=== PATIENT | female | born 1945 | race Caucasian/White ===

== ENCOUNTER 2020-02-20 10:17 | Emergency (ER) | payer MEDICARE ==
[~2020-02-20 10:17] MED LIST: AERONEB GO NEB1 EACH MC; ALPRAZOLAM0.5 MG PO; ASPIR 8181 MG PO; ASPIRIN EC81 MG PO; AZITHROMYCIN250 MG PO; BACTRIM DS TAB1 EACH PO; CATAPRES0.2 MG PO; CEFDINIR300 MG PO; CLOPIDOGREL75 MG PO; CRESTOR10 MG PO; ECOTRIN81 MG PO; FLONASE 0.05% N16 GM; IPRAT-ALBUT 0.5-3 ML INH; K-TAB ER20 MEQ PO; KEFLEX CAP 500500 MG PO; KEFLEX500 MG PO; KENALOG 0.5% CR15 GM TOP; LASIX40 MG PO; LEVOXYL75 MCG PO; LIPITOR20 MG PO; LISINOPRIL10 MG PO; LOPRESSOR 25 MG25 MG PO; MEDROL4 MG PO; MULTIPLE VITAM1 EAC2 PO; NORVASC 5 MG TAB5 MG PO; NORVASC10 MG PO; NORVASC5 MG PO; PEPCID20 MG PO; PHENERGAN 12.12.5 M1 PO; PLAVIX 75 MG TA75 MG PO; PROAIR HFA8.5 GM INH; SPIRIVA18 MCG INH; SYNTHROID75 MCG PO
[2020-02-20 11:21] LABS: HEMOGLOBIN 12.8 gm/dl (12.3-15.3); RED BLOOD COUNT 4.62 M/UL (4.00-5.10); WHITE BLOOD COUNT 9.6 K/UL (4.5-11.0)
[2020-02-20] MEDS ORDERED: VIBRAMYCIN100 MG PO (14:26)
[2020-02-20] MEDS ORDERED: AUGMENTIN 875-1 EACH PO (14:26)
[2020-02-20] MEDS ORDERED: DOXYCYCLINE HY100 M2 PO (23:59)
[2020-02-21] MEDS ORDERED: BACTRIM 400-801 EACH PO (00:20)
== END 2020-02-20 15:08 | disposition home or self-care (01) ==
LOC: ER1 10:17
PROVIDERS: Emergency Medicine
DX: J18.9 Pneumonia, unspecified organism (principal); R10.9 Unspecified abdominal pain; J44.9 Chronic obstructive pulmonary disease, unspecified; Z20.822 Contact with and (suspected) exposure to COVID-19; Z99.81 Dependence on supplemental oxygen
CPT/HCPCS: 71045; 80053; 81001; 83605; 83735; 84100; 85025; 87040; 87086; 96365; 99284; J0696; J7030; U0002

== ENCOUNTER 2020-02-20 21:43 | Emergency (ER) | payer MEDICARE ==
[~2020-02-20 21:43] MED LIST changes: +AUGMENTIN 875-1 EACH PO; +VIBRAMYCIN100 MG PO
[2020-02-20 22:42] LABS: HEMOGLOBIN 12.4 gm/dl (12.3-15.3); RED BLOOD COUNT 4.5 M/UL (4.00-5.10); WHITE BLOOD COUNT 7.3 K/UL (4.5-11.0)
[2020-02-20 23:04] LABS: BUN/CREATININE RATIO 22 (0-10)
[2020-02-20] MEDS ORDERED: DOXYCYCLINE HY100 M2 PO (23:59)
[2020-02-21] MEDS ORDERED: BACTRIM 400-801 EACH PO (00:20)
== END 2020-02-21 02:49 | disposition home or self-care (01) ==
LOC: ER1 21:43
PROVIDERS: Family Medicine
DX: R06.02 Shortness of breath (principal); R79.89 Other specified abnormal findings of blood chemistry; J44.9 Chronic obstructive pulmonary disease, unspecified; Z99.81 Dependence on supplemental oxygen; Z88.5 Allergy status to narcotic agent; J18.9 Pneumonia, unspecified organism; R10.9 Unspecified abdominal pain; Z20.822 Contact with and (suspected) exposure to COVID-19
CPT/HCPCS: 71045; 80053; 81001; 82550; 82553; 83605; 83735; 84100; 84484; 85025; 85379; 85610; 87040; 87086; 93005; 96365; 99284; 99285; J0696; J7030; Q9967; U0002

== ENCOUNTER 2020-02-23 19:59 | Emergency (ER) | payer MEDICARE ==
[~2020-02-23 19:59] MED LIST changes: +BACTRIM 400-801 EACH PO; +DOXYCYCLINE HY100 M2 PO
[2020-02-23 20:59] LABS: HEMOGLOBIN 13.2 gm/dl (12.3-15.3); RED BLOOD COUNT 4.75 M/UL (4.00-5.10); WHITE BLOOD COUNT 6.1 K/UL (4.5-11.0)
[2020-02-23 21:08] LABS: BUN/CREATININE RATIO 24 (0-10)
== END 2020-02-24 02:00 | disposition home or self-care (01) ==
LOC: ER1 19:59
PROVIDERS: Emergency Medicine
DX: I10 Essential (primary) hypertension (principal); F41.9 Anxiety disorder, unspecified; J44.9 Chronic obstructive pulmonary disease, unspecified; Z99.81 Dependence on supplemental oxygen; Z88.5 Allergy status to narcotic agent
CPT/HCPCS: 71045; 80053; 81001; 82550; 82553; 83605; 83690; 83735; 83874; 83880; 84439; 84443; 84484; 85025; 93005; 96374; 96375; 99285; J0360; J1940

== ENCOUNTER → 2020-03-15 | Outpatient (CLI) | payer MEDICARE | LOC: HEART 5 11:48 | DX: J44.9 Chronic obstructive pulmonary disease, unspecified (principal); R06.02 Shortness of breath; R94.2 Abnormal results of pulmonary function studies | CPT/HCPCS: 94010; 94729 ==

== ENCOUNTER → 2020-04-04 | Outpatient (CLI) | payer MEDICARE | LOC: ECHO 04-01 10:00 | DX: I50.30 Unspecified diastolic (congestive) heart failure (principal); I27.20 Pulmonary hypertension, unspecified; I08.3 Combined rheumatic disorders of mitral, aortic and tricuspid valves; Z95.1 Presence of aortocoronary bypass graft | CPT/HCPCS: ECHO; 93306 ==

== ENCOUNTER → 2020-04-15 | Outpatient (CLI) | payer MEDICARE | LOC: RAD 16:53 | DX: R06.02 Shortness of breath (principal); I50.9 Heart failure, unspecified | CPT/HCPCS: 71046 ==

== ENCOUNTER → 2020-08-01 | Outpatient (CLI) | payer MEDICARE | LOC: EXRD 11:07 | DX: J44.9 Chronic obstructive pulmonary disease, unspecified (principal); I50.30 Unspecified diastolic (congestive) heart failure; R91.8 Other nonspecific abnormal finding of lung field; Z98.890 Other specified postprocedural states | CPT/HCPCS: 71046 ==

== ENCOUNTER 2020-11-14 07:20 | Inpatient (IN) | payer MEDICARE ==
[~2020-11-14] VITALS: Ht 167.6 cm; Wt 72.6 kg
[~2020-11-14 07:20] MED LIST changes: -LEVOXYL75 MCG PO; +LEVOXYL88 MCG PO
[2020-11-14 07:43] LABS: HEMOGLOBIN 10.4 gm/dl (12.3-15.3); RED BLOOD COUNT 3.78 M/UL (4.00-5.10); WHITE BLOOD COUNT 3.4 K/UL (4.5-11.0)
[2020-11-14] MEDS ORDERED: ATORVASTATIN CA40 MG PO (14:29)
[2020-11-14] MEDS ORDERED: LISINOPRIL20 MG PO (14:30)
[2020-11-14] MEDS ORDERED: METOPROLOL SUCC25 MG PO (14:31)
[2020-11-14] MEDS ORDERED: BREZTRI AEROS10.7 GM INH (14:32)
[2020-11-14] MEDS ORDERED: BUSPIRONE HCL5 MG PO (14:33)
[2020-11-14] MEDS ORDERED: CLONIDINE HCL0.1 MG PO (14:34)
[2020-11-15 03:00] LABS: ACINETOBACTER BAUMANNII Not Detected (Negative); CANDIDA ALBICANS Not Detected (Negative); CANDIDA KRUSEI Not Detected (Negative); CANDIDA TROPICALIS Not Detected (Negative); ENTEROCOCCUS Not Detected (Negative); ESCHERICHIA COLI Not Detected (Negative); HAEMOPHILUS INFLUENZAE Not Detected (Negative); KLEBSIELLA OXYTOCA Not Detected (Negative); KLEBSIELLA PNEUMONIAE Not Detected (Negative); KPC-CARBAPENEM-RESISTANCE GENE Not Detected (Negative); PROTEUS Not Detected (Negative); PSEUDOMONAS AERUGINOSA Not Detected (Negative); SERRATIA MARCESANS Not Detected (Negative); STAPHYLOCOCCUS AUREUS Not Detected (Negative); STREP AGALACTIAE (GROUP B) Not Detected (Negative); STREP PYOGENES (GROUP A) Not Detected (Negative); STREPTOCOCCUS Not Detected (Negative); vanA/B (VANCOMYCIN RESIST GENE Not Detected (Negative)
[2020-11-15 04:14] LABS: STAPHYLOCOCCUS DETECTED (Negative); mecA (METHICILLIN RESIST GENE DETECTED (Negative)
[2020-11-15 06:58] LABS: HEMOGLOBIN 11.4 gm/dl (12.3-15.3); WHITE BLOOD COUNT 3.5 K/UL (4.5-11.0)
[2020-11-15 07:03] LABS: RED BLOOD COUNT 4.19 M/UL (4.00-5.10)
[2020-11-16 06:28] LABS: HEMOGLOBIN 12.5 gm/dl (12.3-15.3); RED BLOOD COUNT 4.58 M/UL (4.00-5.10)
[2020-11-16 06:29] LABS: WHITE BLOOD COUNT 9.3 K/UL (4.5-11.0)
[2020-11-17 07:09] LABS: HEMOGLOBIN 12.5 gm/dl (12.3-15.3); RED BLOOD COUNT 4.56 M/UL (4.00-5.10); WHITE BLOOD COUNT 7.4 K/UL (4.5-11.0)
[2020-11-18 07:31] LABS: HEMOGLOBIN 11.9 gm/dl (12.3-15.3); RED BLOOD COUNT 4.35 M/UL (4.00-5.10)
[2020-11-18 07:35] LABS: WHITE BLOOD COUNT 5.1 K/UL (4.5-11.0)
[2020-11-18] MEDS ORDERED: LASIX40 MG PO (12:08)
[2020-11-18] MEDS ORDERED: DECADRON6 MG PO (12:08)
[2020-11-18] MEDS ORDERED: COMBIVENT RESPIM4 GM INH (12:08)
== END 2020-11-18 19:01 | disposition home or self-care (01) | DRG 177 ==
LOC: ER1 07:20 → MED SURG 4 09:11 → CDU 09:11 → MED SURG 4 12:25
PROVIDERS: Emergency Medicine; Internal Medicine; Internal Medicine Infectious Disease; ADMIT Internal Medicine
PROC: XW033E5 Introduction of Remdesivir Anti-infective into Peripheral Vein, Percutaneous Approach, New Technology Group 5 (ICD-10-PCS; principal; 2020-11-14)
PROC: 3E0333Z Introduction of Anti-inflammatory into Peripheral Vein, Percutaneous Approach (ICD-10-PCS; 2020-11-14)
PROC: 8E0ZXY6 Isolation (ICD-10-PCS; 2020-11-14)
DX: U07.1 COVID-19 (principal); J12.82 Pneumonia due to coronavirus disease 2019; I50.33 Acute on chronic diastolic (congestive) heart failure; J96.21 Acute and chronic respiratory failure with hypoxia; J15.9 Unspecified bacterial pneumonia; J44.0 Chronic obstructive pulmonary disease with (acute) lower respiratory infection; G93.40 Encephalopathy, unspecified; N17.9 Acute kidney failure, unspecified; I27.20 Pulmonary hypertension, unspecified; I08.3 Combined rheumatic disorders of mitral, aortic and tricuspid valves; R79.89 Other specified abnormal findings of blood chemistry; K21.9 Gastro-esophageal reflux disease without esophagitis; E78.5 Hyperlipidemia, unspecified; I25.10 Atherosclerotic heart disease of native coronary artery without angina pectoris; I73.9 Peripheral vascular disease, unspecified; E03.9 Hypothyroidism, unspecified; I11.0 Hypertensive heart disease with heart failure; Z95.1 Presence of aortocoronary bypass graft; Z99.81 Dependence on supplemental oxygen; Z86.73 Personal history of transient ischemic attack (TIA), and cerebral infarction without residual deficits; Z93.1 Gastrostomy status; Z90.49 Acquired absence of other specified parts of digestive tract; Z88.6 Allergy status to analgesic agent; Z88.5 Allergy status to narcotic agent; Z82.49 Family history of ischemic heart disease and other diseases of the circulatory system; Z87.891 Personal history of nicotine dependence
CPT/HCPCS: 36415; 36600; 71045; 80053; 82550; 82553; 82728; 82803; 82962; 83605; 83615; 83735; 83874; 83880; 84100; 84439; 84443; 84484; 85025; 85379; 85610; 85730; 86140; 87040; 87077; 87150; 87186; 93005; 94640; 94664; 94760; 96374; 99285; J0456; J0696; J1100; J1650; J1940; J2185; J3370; J7030; J7040; J7070; U0002

== ENCOUNTER 2020-11-25 05:58 | Inpatient (IN) | payer MEDICARE ==
[~2020-11-25] VITALS: Ht 167.6 cm; Wt 70.8 kg
[~2020-11-25 05:58] MED LIST changes: +ATORVASTATIN CA40 MG PO; +BREZTRI AEROS10.7 GM INH; +BUSPIRONE HCL5 MG PO; +CLONIDINE HCL0.1 MG PO; +COMBIVENT RESPIM4 GM INH; +DECADRON6 MG PO; +LISINOPRIL20 MG PO; +METOPROLOL SUCC25 MG PO
[2020-11-25 07:28] LABS: RED BLOOD COUNT 5.26 M/UL (4.00-5.10); WHITE BLOOD COUNT 7.5 K/UL (4.5-11.0)
[2020-11-25 07:30] LABS: HEMOGLOBIN 14.1 gm/dl (12.3-15.3)
[2020-11-26 04:34] LABS: RED BLOOD COUNT 4.76 M/UL (4.00-5.10)
[2020-11-26 04:35] LABS: WHITE BLOOD COUNT 4.6 K/UL (4.5-11.0)
--- NOTE | 2020-11-26 17:10 | NUR ---
SPOKE WITH FAMILY TODAY TO UPDATE THEM ON HER PLAN OF CARE.
[2020-11-27] MEDS ORDERED: LASIX40 MG PO (09:02)
[2020-11-27] MEDS ORDERED: NORVASC5 MG PO (09:02)
[2020-11-27] MEDS ORDERED: CEFUROXIME500 MG PO (09:02)
== END 2020-11-27 12:45 | disposition home or self-care (01) | DRG 177 ==
LOC: ER1 05:58 → CDU 12:13 → MED SURG 4 15:55
PROVIDERS: Physician Assistant; ADMIT Internal Medicine
PROC: 8E0ZXY6 Isolation (ICD-10-PCS; principal; 2020-11-25)
PROC: 3E0333Z Introduction of Anti-inflammatory into Peripheral Vein, Percutaneous Approach (ICD-10-PCS; principal; 2020-11-25)
PROC: XW033E5 Introduction of Remdesivir Anti-infective into Peripheral Vein, Percutaneous Approach, New Technology Group 5 (ICD-10-PCS; principal; 2020-11-25)
PROC: 5A09457 Assistance with Respiratory Ventilation, 24-96 Consecutive Hours, Continuous Positive Airway Pressure (ICD-10-PCS; 2020-11-25)
DX: U07.1 COVID-19 (principal); J12.82 Pneumonia due to coronavirus disease 2019; J96.21 Acute and chronic respiratory failure with hypoxia; J96.02 Acute respiratory failure with hypercapnia; J15.9 Unspecified bacterial pneumonia; I13.0 Hypertensive heart and chronic kidney disease with heart failure and stage 1 through stage 4 chronic kidney disease, or unspecified chronic kidney disease; N17.9 Acute kidney failure, unspecified; I50.32 Chronic diastolic (congestive) heart failure; N18.30 Chronic kidney disease, stage 3 unspecified; I25.10 Atherosclerotic heart disease of native coronary artery without angina pectoris; E03.9 Hypothyroidism, unspecified; E78.5 Hyperlipidemia, unspecified; I73.9 Peripheral vascular disease, unspecified; I27.20 Pulmonary hypertension, unspecified; Z86.73 Personal history of transient ischemic attack (TIA), and cerebral infarction without residual deficits; Z95.1 Presence of aortocoronary bypass graft; Z79.82 Long term (current) use of aspirin; Z79.890 Hormone replacement therapy; Z99.81 Dependence on supplemental oxygen; Z88.5 Allergy status to narcotic agent
CPT/HCPCS: 36415; 70450; 71045; 80048; 80053; 80202; 81001; 82550; 82553; 82803; 83605; 83615; 83874; 83880; 84484; 85025; 86140; 87040; 93005; 94640; 94660; 94664; 94760; 96374; 96375; 99285; J0692; J1100; J1644; J2543; J3370; J7040; J7070; U0002

== ENCOUNTER 2020-12-19 21:58 | Inpatient (IN) | payer MEDICARE ==
[~2020-12-19] VITALS: Ht 172.7 cm; Wt 72.7 kg
[~2020-12-19 21:58] MED LIST changes: +CEFUROXIME500 MG PO
[2020-12-19 22:41] LABS: HEMOGLOBIN 12.1 gm/dl (12.3-15.3); RED BLOOD COUNT 4.46 M/UL (4.00-5.10); WHITE BLOOD COUNT 8.3 K/UL (4.5-11.0)
[2020-12-19 23:15] LABS: BUN/CREATININE RATIO 17 (0-10)
[2020-12-20 23:48] LABS: ACINETOBACTER BAUMANNII Not Detected (Negative); CANDIDA ALBICANS Not Detected (Negative); CANDIDA KRUSEI Not Detected (Negative); CANDIDA TROPICALIS Not Detected (Negative); ENTEROCOCCUS Not Detected (Negative); ESCHERICHIA COLI Not Detected (Negative); HAEMOPHILUS INFLUENZAE Not Detected (Negative); KLEBSIELLA OXYTOCA Not Detected (Negative); KLEBSIELLA PNEUMONIAE Not Detected (Negative); KPC-CARBAPENEM-RESISTANCE GENE Not Detected (Negative); PROTEUS Not Detected (Negative); PSEUDOMONAS AERUGINOSA Not Detected (Negative); SERRATIA MARCESANS Not Detected (Negative); STAPHYLOCOCCUS AUREUS Not Detected (Negative); STREP AGALACTIAE (GROUP B) Not Detected (Negative); STREP PYOGENES (GROUP A) Not Detected (Negative); STREPTOCOCCUS Not Detected (Negative); vanA/B (VANCOMYCIN RESIST GENE Not Detected (Negative)
[2020-12-21 02:10] LABS: STAPHYLOCOCCUS DETECTED (Negative); mecA (METHICILLIN RESIST GENE DETECTED (Negative)
--- NOTE | 2020-12-21 02:25 | NUR ---
NOTIFID DR RODRIGUEZ OF POSITIVE BLOOD CULTURES. RECIEVED ORDERS. WILL CONTINUE TO MONITOR.
--- NOTE | 2020-12-21 06:22 | NUR ---
PT O2 SATS 86%. NOTIFIED MD AND RECIEVED ORDERS. WILL CONTINUE TO MONITOR.
[2020-12-21 07:08] LABS: HEMOGLOBIN 11.9 gm/dl (12.3-15.3); RED BLOOD COUNT 4.33 M/UL (4.00-5.10)
[2020-12-21 07:13] LABS: WHITE BLOOD COUNT 12.4 K/UL (4.5-11.0)
--- NOTE | 2020-12-21 10:41 | NUR ---
VITALS STABLE MD MADE AWARE OF PTS DECONDITIONING FROM SENIOR IT RECRUITER PT IS FEBRILE, DIAPHORETIC, RR AT 30/M O2 WAS AT 2 L PT FOUND WITH O2 SAT OF 60% NONREBREATHER PLACED ON PT, ABG OBTAINED, CHEST XRAY AND DUONEBS GIVEN PT MOVING TO PCU FOR CLOSER MONITORING
[2020-12-22 04:05] LABS: HEMOGLOBIN 10.8 gm/dl (12.3-15.3); RED BLOOD COUNT 3.96 M/UL (4.00-5.10); WHITE BLOOD COUNT 12.7 K/UL (4.5-11.0)
[2020-12-22] MEDS ORDERED: ELIQUIS5 M1 PO (15:51)
[2020-12-22] MEDS ORDERED: LEVOXYL88 MCG PO (15:51)
[2020-12-23 04:30] LABS: HEMOGLOBIN 10.5 gm/dl (12.3-15.3); RED BLOOD COUNT 3.83 M/UL (4.00-5.10)
[2020-12-23 04:36] LABS: WHITE BLOOD COUNT 20.3 K/UL (4.5-11.0)
[2020-12-24 03:54] LABS: HEMOGLOBIN 9.8 gm/dl (12.3-15.3); RED BLOOD COUNT 3.75 M/UL (4.00-5.10); WHITE BLOOD COUNT 20.3 K/UL (4.5-11.0)
[2020-12-25 03:17] LABS: HEMOGLOBIN 9.3 gm/dl (12.3-15.3); RED BLOOD COUNT 3.53 M/UL (4.00-5.10); WHITE BLOOD COUNT 17.3 K/UL (4.5-11.0)
[2020-12-26 03:02] LABS: HEMOGLOBIN 9.2 gm/dl (12.3-15.3); RED BLOOD COUNT 3.44 M/UL (4.00-5.10); WHITE BLOOD COUNT 17.2 K/UL (4.5-11.0)
[2020-12-26 13:11] LABS: CORTISOL 23.4 ug/dL (.)
[2020-12-27 03:40] LABS: HEMOGLOBIN 9.2 gm/dl (12.3-15.3); RED BLOOD COUNT 3.5 M/UL (4.00-5.10); WHITE BLOOD COUNT 13.6 K/UL (4.5-11.0)
[2020-12-27 06:12] LABS: HBSAG SCREEN Negative (Negative); HEP A AB, IGM Negative (Negative); HEP B CORE AB, IGM Negative (Negative); HEP C VIRUS AB <0.1 (0.0-0.9)
[2020-12-28 03:28] LABS: HEMOGLOBIN 9.3 gm/dl (12.3-15.3); RED BLOOD COUNT 3.47 M/UL (4.00-5.10); WHITE BLOOD COUNT 10.2 K/UL (4.5-11.0)
[2020-12-29 03:32] LABS: HEMOGLOBIN 8.6 gm/dl (12.3-15.3); RED BLOOD COUNT 3.36 M/UL (4.00-5.10); WHITE BLOOD COUNT 9.7 K/UL (4.5-11.0)
[2020-12-30 03:56] LABS: HEMOGLOBIN 8.3 gm/dl (12.3-15.3); RED BLOOD COUNT 3.12 M/UL (4.00-5.10)
[2020-12-30 12:14] LABS: ANTI-DSDNA ANTIBODIES 1 IU/mL (0-9)
[2020-12-30 16:14] LABS: A/G RATIO 0.8 (0.7-1.7); ALBUMIN 2.3 g/dL (2.9-4.4); ALPHA-1-GLOBULIN 0.4 g/dL (0.0-0.4); ALPHA-2-GLOBULIN 0.8 g/dL (0.4-1.0); BETA GLOBULIN 0.7 g/dL (0.7-1.3); GAMMA GLOBULIN 1.3 g/dL (0.4-1.8); GLOBULIN, TOTAL 3.2 g/dL (2.2-3.9); IMMUNOFIXATION RESULT, SERUM Comment: (.); IMMUNOGLOBULIN A, QN, SERUM 359 mg/dL (64-422); IMMUNOGLOBULIN G, QN, SERUM 1207 mg/dL (586-1602); IMMUNOGLOBULIN M, QN, SERUM 138 mg/dL (26-217); M-SPIKE Comment: g/dL (Not Observed); PROTEIN, TOTAL, SERUM 5.5 g/dL (6.0-8.5)
[2020-12-31 02:53] LABS: HEMOGLOBIN 8.5 gm/dl (12.3-15.3); RED BLOOD COUNT 3.19 M/UL (4.00-5.10); WHITE BLOOD COUNT 11.1 K/UL (4.5-11.0)
[2020-12-31 19:08] LABS: ANTIMYELOPEROXIDASE (MPO) ABS <9.0 U/mL (0.0-9.0); ANTIPROTEINASE 3 (PR-3) ABS <3.5 U/mL (0.0-3.5); ATYPICAL PANCA <1:20 titer (Neg:<1:20); CYTOPLASMIC (C-ANCA) 1:20 titer (Neg:<1:20); PERINUCLEAR (P-ANCA) <1:20 titer (Neg:<1:20)
[2021-01-01 03:22] LABS: HEMOGLOBIN 9.3 gm/dl (12.3-15.3); RED BLOOD COUNT 3.36 M/UL (4.00-5.10)
[2021-01-01 03:27] LABS: WHITE BLOOD COUNT 16.1 K/UL (4.5-11.0)
[2021-01-01 18:30] LABS: HEMOGLOBIN 8.9 gm/dl (12.3-15.3); RED BLOOD COUNT 3.31 M/UL (4.00-5.10); WHITE BLOOD COUNT 16.9 K/UL (4.5-11.0)
--- NOTE | 2021-01-01 19:37 | NUR ---
FLEXO FOLDER GLUER OPERATOR WAS CALLED D/T UNRESPONSIVENESS AND LOW 02 SAT AFTER PLACING GUZMAN. NOTIFIED WELL.
[2021-01-02 05:15] LABS: HEMOGLOBIN 8.2 gm/dl (12.3-15.3); RED BLOOD COUNT 3.04 M/UL (4.00-5.10); WHITE BLOOD COUNT 18.6 K/UL (4.5-11.0)
--- NOTE | 2021-01-03 04:55 | NUR ---
RESTLESS , RESPIRATORY RATE @ 35 WITH 02 SATS 88-92% . PLACED ON BI-PAP 01/22,RATE 16 ,FIO2 60% . 02 SATS INCREASED TO 97% ,RESPIRATORY RATE IS NOW 26 AND PATIENT APPEARS TO BE RESTING EASIER AT THIS TIME. WILL CONTINUE TO MONITOR.
[2021-01-03 07:54] LABS: HEMOGLOBIN 7.6 gm/dl (12.3-15.3); RED BLOOD COUNT 2.91 M/UL (4.00-5.10); WHITE BLOOD COUNT 11.7 K/UL (4.5-11.0)
--- NOTE | 2021-01-03 15:30 | NUR ---
1100: PATIENT REFUSES TO WEAR BIPAP AND UNDERSTANDS THE RISKS OF DOING SO.
--- NOTE | 2021-01-03 16:25 | NUR ---
FAMILY REFUSES FULL ASSESSMENT AT THIS TIME DUE TO PATIENT'S COMFORT CARE STATUS. FROM VISUAL ASSESSMENT PATIENT IS RESTING COMFORTABLY WITH EYES CLOSED. EDEMA AND SCRATCHES TO BLE. WILL CONTINUE TO MONITOR STATUS. OXYGEN DELIVERED VIA NC AT 10 LPM.
--- NOTE | 2021-01-04 09:10 | NUR ---
PER FAMILY REQUEST COMPLETE NURSING ASSESSMENT BYPASS AT THIS TIME DUE TO COMFORT CARE MEASURES ONLY. PATIENT RESTING QUIETLY, WITH EYES CLOSED. RESPIRATORY RATE SLIGHTLY INCREASED. WILL CONTINUE TO MONITOR FOR CHANGES OF STATUS AND MEDICATE PRN.
--- NOTE | 2021-01-04 09:53 | NUR ---
0940: CALLED TO PATIENT'S ROOM BY GERSON CALLEJAS RN. PATIENT WITH NO RESPIRATIONS, NO PULSE, NO AUDIBLE HEART SOUNDS VIA ASUCULTATION. VERIFIED BY TWO RN'S. NO SIGNS AND SYMPTOMS COMPATIBLE WITH LIFE NOTED. NOTIFIED DR. CALLAWAY WELL PATIENT'S DAUGHTER JAIDA.
--- NOTE | 2021-01-04 10:14 | NUR ---
1000: CONTACTED [facility]. PATIENT IS RULED OUT FOR ORGAN DONATION. [facility] COORDINATOR MARCUS CORREA, .
--- NOTE | 2021-01-04 10:52 | NUR ---
REMAINS RELEASED TO [facility].
== END 2021-01-04 10:52 | disposition expired | DRG 208 ==
LOC: ER1 21:58 → CDU 12-20 03:10 → M/S 12-20 03:10 → PROG CARE 12-21 08:31 → CCU 12-21 08:31 → PROG CARE 12-21 11:05 → CCU 01-01 18:35 → MED SURG 4 01-03 16:08
PROVIDERS: Family Medicine; Internal Medicine; Internal Medicine Critical Care Medicine; Internal Medicine Nephrology; Physician Assistant Medical; ADMIT Internal Medicine
PROC: 3E033XZ Introduction of Vasopressor into Peripheral Vein, Percutaneous Approach (ICD-10-PCS; principal; 2020-12-28)
PROC: 5A1945Z Respiratory Ventilation, 24-96 Consecutive Hours (ICD-10-PCS; 2021-01-01)
PROC: 0BH18EZ Insertion of Endotracheal Airway into Trachea, Via Natural or Artificial Opening Endoscopic (ICD-10-PCS; 2021-01-01)
DX: U07.1 COVID-19 (principal); J12.82 Pneumonia due to coronavirus disease 2019; J96.22 Acute and chronic respiratory failure with hypercapnia; J96.21 Acute and chronic respiratory failure with hypoxia; N17.0 Acute kidney failure with tubular necrosis; I50.43 Acute on chronic combined systolic (congestive) and diastolic (congestive) heart failure; A41.02 Sepsis due to Methicillin resistant Staphylococcus aureus; R65.21 Severe sepsis with septic shock; J69.0 Pneumonitis due to inhalation of food and vomit; I21.4 Non-ST elevation (NSTEMI) myocardial infarction; I13.0 Hypertensive heart and chronic kidney disease with heart failure and stage 1 through stage 4 chronic kidney disease, or unspecified chronic kidney disease; E44.0 Moderate protein-calorie malnutrition; J44.1 Chronic obstructive pulmonary disease with (acute) exacerbation; E87.2 Acidosis; M62.82 Rhabdomyolysis; Z99.11 Dependence on respirator [ventilator] status; J44.0 Chronic obstructive pulmonary disease with (acute) lower respiratory infection; K75.9 Inflammatory liver disease, unspecified; I48.0 Paroxysmal atrial fibrillation; E86.0 Dehydration; Z86.73 Personal history of transient ischemic attack (TIA), and cerebral infarction without residual deficits; E11.51 Type 2 diabetes mellitus with diabetic peripheral angiopathy without gangrene; E78.5 Hyperlipidemia, unspecified; M60.9 Myositis, unspecified; Z66 Do not resuscitate; I27.20 Pulmonary hypertension, unspecified; K21.9 Gastro-esophageal reflux disease without esophagitis; I71.4 Abdominal aortic aneurysm, without rupture; R57.0 Cardiogenic shock; I35.0 Nonrheumatic aortic (valve) stenosis; E87.5 Hyperkalemia; D50.9 Iron deficiency anemia, unspecified; N18.30 Chronic kidney disease, stage 3 unspecified; E03.9 Hypothyroidism, unspecified; Z79.899 Other long term (current) drug therapy; Z95.1 Presence of aortocoronary bypass graft; Z90.49 Acquired absence of other specified parts of digestive tract; Z95.828 Presence of other vascular implants and grafts; Z88.5 Allergy status to narcotic agent; Z79.82 Long term (current) use of aspirin; Z87.891 Personal history of nicotine dependence; Z68.24 Body mass index [BMI] 24.0-24.9, adult
CPT/HCPCS: ECHO; 31500; 36415; 36600; 51701; 70450; 71045; 71046; 71250; 80048; 80053; 80069; 80074; 80202; 81001; 82140; 82533; 82550; 82553; 82570; 82607; 82728; 82746; 82784; 82803; 82962; 83520; 83540; 83550; 83605; 83735; 83880; 84100; 84133; 84155; 84156; 84165; 84300; 84439; 84443; 84484; 84550; 85025; 85027; 85384; 85610; 85730; 86038; 86140; 86160; 86225; 86256; 86334; 87040; 87077; 87081; 87086; 87150; 87186; 87880; 89050; 93005; 93306; 93971; 94002; 94003; 94640; 94660; 94664; 94760; 96372; 96374; 97116; 97162; 97164; 97530; 97530-GP-CQ; 99285; A6212; G0378; J0692; J0696; J0878; J1160; J1644; J1650; J1756; J1940; J2060; J2270; J2704; J3370; J7050; P9047; Q0177; U0002